=== PATIENT | male | born 1985 | race Caucasian/White ===

== ENCOUNTER → 2022-08-12 | Outpatient (CLI) | payer BC, OTHER ==
[~2022-08-12] MED LIST: LIDOCAINE VISC 2% SOLN 15 ML UDC ONE; MUPIROCIN 2% OINT 22 GM TUBE ONE
== END ==
LOC: WCC 09:37
PROVIDERS: ATTEND Family Medicine Adult Medicine
DX: S31.000A Unspecified open wound of lower back and pelvis without penetration into retroperitoneum, initial encounter (principal); S31.819A Unspecified open wound of right buttock, initial encounter; S31.829A Unspecified open wound of left buttock, initial encounter; S41.102A Unspecified open wound of left upper arm, initial encounter; S50.311A Abrasion of right elbow, initial encounter; S51.802A Unspecified open wound of left forearm, initial encounter; S61.402A Unspecified open wound of left hand, initial encounter; S80.812A Abrasion, left lower leg, initial encounter; M79.671 Pain in right foot; V26.4XXA Motorcycle driver injured in collision with other nonmotor vehicle in traffic accident, initial encounter
CPT/HCPCS: 87071; 87075; 87205

== ENCOUNTER → 2022-08-13 | Outpatient (CLI) | payer BC, OTHER | LOC: WCC 10:53 | PROVIDERS: ATTEND Family Medicine Adult Medicine | DX: S80.812A Abrasion, left lower leg, initial encounter (principal); S50.311A Abrasion of right elbow, initial encounter; S61.402A Unspecified open wound of left hand, initial encounter; S51.802A Unspecified open wound of left forearm, initial encounter; S41.102A Unspecified open wound of left upper arm, initial encounter; S31.000A Unspecified open wound of lower back and pelvis without penetration into retroperitoneum, initial encounter; S31.829A Unspecified open wound of left buttock, initial encounter; S31.819A Unspecified open wound of right buttock, initial encounter; V26.4XXA Motorcycle driver injured in collision with other nonmotor vehicle in traffic accident, initial encounter; M79.671 Pain in right foot; R00.0 Tachycardia, unspecified ==

== ENCOUNTER → 2022-08-14 | Outpatient (CLI) | payer BC, OTHER | LOC: WCC 12:55 | PROVIDERS: ATTEND Family Medicine Adult Medicine | DX: S61.402A Unspecified open wound of left hand, initial encounter (principal); S51.802A Unspecified open wound of left forearm, initial encounter; S41.102A Unspecified open wound of left upper arm, initial encounter; S31.000A Unspecified open wound of lower back and pelvis without penetration into retroperitoneum, initial encounter; S31.829A Unspecified open wound of left buttock, initial encounter; S31.819A Unspecified open wound of right buttock, initial encounter; S80.812A Abrasion, left lower leg, initial encounter; S50.311A Abrasion of right elbow, initial encounter; M79.671 Pain in right foot; V26.4XXA Motorcycle driver injured in collision with other nonmotor vehicle in traffic accident, initial encounter; R00.0 Tachycardia, unspecified ==

== ENCOUNTER → 2022-08-15 | Outpatient (CLI) | payer BC, OTHER | LOC: WCC 15:54 | PROVIDERS: ATTEND Family Medicine Adult Medicine | DX: S61.402A Unspecified open wound of left hand, initial encounter (principal); S51.802A Unspecified open wound of left forearm, initial encounter; S41.102A Unspecified open wound of left upper arm, initial encounter; S31.829A Unspecified open wound of left buttock, initial encounter; S31.819A Unspecified open wound of right buttock, initial encounter; S31.000A Unspecified open wound of lower back and pelvis without penetration into retroperitoneum, initial encounter; S80.812A Abrasion, left lower leg, initial encounter; S50.311A Abrasion of right elbow, initial encounter; M79.671 Pain in right foot; V26.4XXA Motorcycle driver injured in collision with other nonmotor vehicle in traffic accident, initial encounter; R00.0 Tachycardia, unspecified ==

== ENCOUNTER → 2022-08-18 | Outpatient (CLI) | payer BC, OTHER | LOC: WCC 13:16 | PROVIDERS: ATTEND Family Medicine Adult Medicine | DX: S61.402A Unspecified open wound of left hand, initial encounter (principal); S51.802A Unspecified open wound of left forearm, initial encounter; S41.102A Unspecified open wound of left upper arm, initial encounter; S31.000A Unspecified open wound of lower back and pelvis without penetration into retroperitoneum, initial encounter; S31.829A Unspecified open wound of left buttock, initial encounter; S31.819A Unspecified open wound of right buttock, initial encounter; S80.812A Abrasion, left lower leg, initial encounter; S50.311A Abrasion of right elbow, initial encounter; M79.671 Pain in right foot; V26.4XXA Motorcycle driver injured in collision with other nonmotor vehicle in traffic accident, initial encounter; R00.0 Tachycardia, unspecified ==

== ENCOUNTER → 2022-08-19 | Outpatient (CLI) | payer BC, OTHER | LOC: WCC 11:57 | PROVIDERS: ATTEND Family Medicine Adult Medicine | DX: S61.402A Unspecified open wound of left hand, initial encounter (principal); S51.802A Unspecified open wound of left forearm, initial encounter; S41.102A Unspecified open wound of left upper arm, initial encounter; S31.000A Unspecified open wound of lower back and pelvis without penetration into retroperitoneum, initial encounter; S31.829A Unspecified open wound of left buttock, initial encounter; S31.819A Unspecified open wound of right buttock, initial encounter; S80.812A Abrasion, left lower leg, initial encounter; S50.311A Abrasion of right elbow, initial encounter; M79.671 Pain in right foot; V26.4XXA Motorcycle driver injured in collision with other nonmotor vehicle in traffic accident, initial encounter; R00.0 Tachycardia, unspecified ==

== ENCOUNTER → 2022-08-20 | Outpatient (CLI) | payer BC | LOC: WCC 10:52 | PROVIDERS: ATTEND Family Medicine Adult Medicine | DX: S61.402A Unspecified open wound of left hand, initial encounter (principal); S51.802A Unspecified open wound of left forearm, initial encounter; S41.102A Unspecified open wound of left upper arm, initial encounter; S31.000A Unspecified open wound of lower back and pelvis without penetration into retroperitoneum, initial encounter; S31.829A Unspecified open wound of left buttock, initial encounter; S31.819A Unspecified open wound of right buttock, initial encounter; S80.812A Abrasion, left lower leg, initial encounter; S50.311A Abrasion of right elbow, initial encounter; M79.671 Pain in right foot; V26.4XXA Motorcycle driver injured in collision with other nonmotor vehicle in traffic accident, initial encounter; R00.0 Tachycardia, unspecified ==

== ENCOUNTER → 2022-08-21 | Outpatient (CLI) | payer BC | LOC: WCC 13:27 | PROVIDERS: ATTEND Family Medicine Adult Medicine | DX: S61.402A Unspecified open wound of left hand, initial encounter (principal); S51.802A Unspecified open wound of left forearm, initial encounter; S41.102A Unspecified open wound of left upper arm, initial encounter; S31.000A Unspecified open wound of lower back and pelvis without penetration into retroperitoneum, initial encounter; S31.829A Unspecified open wound of left buttock, initial encounter; S31.819A Unspecified open wound of right buttock, initial encounter; S80.812A Abrasion, left lower leg, initial encounter; S50.311A Abrasion of right elbow, initial encounter; M79.671 Pain in right foot; V26.4XXA Motorcycle driver injured in collision with other nonmotor vehicle in traffic accident, initial encounter; R00.0 Tachycardia, unspecified ==

== ENCOUNTER → 2022-08-22 | Outpatient (CLI) | payer BC | LOC: WCC 15:30 | PROVIDERS: ATTEND Family Medicine Adult Medicine | DX: S31.000A Unspecified open wound of lower back and pelvis without penetration into retroperitoneum, initial encounter (principal); S31.819A Unspecified open wound of right buttock, initial encounter; S31.829A Unspecified open wound of left buttock, initial encounter; S41.102A Unspecified open wound of left upper arm, initial encounter; S61.402A Unspecified open wound of left hand, initial encounter; S80.812A Abrasion, left lower leg, initial encounter; M79.671 Pain in right foot; V26.4XXA Motorcycle driver injured in collision with other nonmotor vehicle in traffic accident, initial encounter; R00.0 Tachycardia, unspecified ==

== ENCOUNTER → 2022-08-25 | Outpatient (CLI) | payer BC, OTHER | LOC: WCC 14:44 | PROVIDERS: ATTEND Family Medicine Adult Medicine | DX: S61.402A Unspecified open wound of left hand, initial encounter (principal); S31.000A Unspecified open wound of lower back and pelvis without penetration into retroperitoneum, initial encounter; S41.102A Unspecified open wound of left upper arm, initial encounter; S31.829A Unspecified open wound of left buttock, initial encounter; S31.819A Unspecified open wound of right buttock, initial encounter; M79.671 Pain in right foot; V26.49XA Other motorcycle driver injured in collision with other nonmotor vehicle in traffic accident, initial encounter; R00.0 Tachycardia, unspecified ==

== ENCOUNTER → 2022-08-27 | Outpatient (CLI) | payer BC, OTHER | LOC: WCC 15:34 | PROVIDERS: ATTEND Family Medicine Adult Medicine | DX: S31.000A Unspecified open wound of lower back and pelvis without penetration into retroperitoneum, initial encounter (principal); S31.819A Unspecified open wound of right buttock, initial encounter; S31.829A Unspecified open wound of left buttock, initial encounter; S41.102A Unspecified open wound of left upper arm, initial encounter; S61.402A Unspecified open wound of left hand, initial encounter; V26.49XA Other motorcycle driver injured in collision with other nonmotor vehicle in traffic accident, initial encounter; M79.671 Pain in right foot; R00.0 Tachycardia, unspecified ==